=== PATIENT | female | born 1945 | race Caucasian/White ===

== ENCOUNTER 2017-09-23 21:01 | Emergency (ER) | payer MEDICARE ==
[~2017-09-23] VITALS: Ht 160 cm; Wt 98.9 kg
[~2017-09-23 21:01] MED LIST: ARTHRITIS PAIN650 MG PO; ASPIRIN EC81 MG PO; BIOTIN5 MG PO; CARVEDILOL3.125 MG PO; DILAUDID2 MG PO; DILAUDID4 MG PO; GLUCOPHAGE500 MG PO; JANUVIA100 MG PO; JANUVIA50 MG PO; LISINOPRIL20 MG PO; METFORMIN HCL500 MG PO; OXYCODONE HCL10 MG PO; PRAVACHOL40 MG PO; PRENA1 CHEW TA1.4 MG PO; SYNTHROID50 MCG PO; TYLENOL EXTRA500 MG PO; TYLENOL325 MG PO; VALIUM5 MG PO; VITAMIN D32000 UNI1 PO; XARELTO10 MG PO
[2017-09-24] MEDS ORDERED: FLOMAX0.4 MG PO (00:41)
[2017-09-24] MEDS ORDERED: PERCOCET 5-3251 EACH PO (00:41)
== END 2017-09-24 01:00 | disposition home or self-care (01) ==
LOC: ED 21:01
DX: N13.2 Hydronephrosis with renal and ureteral calculous obstruction (principal); E11.9 Type 2 diabetes mellitus without complications; Z96.641 Presence of right artificial hip joint; Z90.49 Acquired absence of other specified parts of digestive tract; Z90.710 Acquired absence of both cervix and uterus; Z88.5 Allergy status to narcotic agent; Z79.82 Long term (current) use of aspirin; Z79.899 Other long term (current) drug therapy; Z79.84 Long term (current) use of oral hypoglycemic drugs
CPT/HCPCS: 74176; 80053; 81001; 85025; 96374; 99284; J1885

== ENCOUNTER 2025-04-09 12:52 | Emergency (ER) | payer MEDICARE, OTHER ==
[~2025-04-09] VITALS: Ht 162.6 cm; Wt 104.0 kg
[~2025-04-09 12:52] MED LIST changes: +FLOMAX0.4 MG PO; +PERCOCET 5-3251 EACH PO
[2025-04-09] MEDS ORDERED: SODIUM CHLORIDE 0.9% 1,000 ML IV ONE (13:15)
[2025-04-09] MEDS ORDERED: ondansetron HCL 4 MG/2 ML VIAL IV PRN (13:15)
[2025-04-09] MEDS ORDERED: HYDROmorphone HCL 1 MG/ML SYR IV ONE (13:15)
[2025-04-09] MEDS ORDERED: KETOROLAC TROMETHAMINE 30 MG/ML VIAL IV ONE (13:15)
[2025-04-09] MEDS ORDERED: GLIPIZIDE ER2.5 MG PO (13:21)
[2025-04-09] MEDS ORDERED: PIOGLITAZONE HC15 MG PO (13:21)
[2025-04-09 13:42] LABS: BASOPHILS 0.7 % (0.1-1.2); HEMATOCRIT 36.1 % (34.1-44.9); HEMOGLOBIN 11.7 g/dL (11.2-15.7); LYMPHOCYTES 19.2 % (19.3-51.7); MCH 30.5 PG (25.6-32.2); MCHC 32.4 g/dL (32.2-35.5); MONOCYTES 5.5 % (4.7-12.5); NEUTROPHILS 71.4 % (34.0-71.1); PLATELET COUNT 119 K/uL (182-369); RBC 3.84 M/uL (3.93-5.22)
[2025-04-09 13:57] LABS: ALBUMIN 3.7 g/dL (3.4-5.0); ALBUMIN/GLOBULIN RATIO 1.03 (1.1-2.4); BILIRUBIN, TOTAL 0.7 mg/dL (0.2-1.0); CREATININE, SERUM 1.25 mg/dL (0.55-1.02); PROTEIN, TOTAL 7.3 g/dL (6.4-8.2)
[2025-04-09 15:53] LABS: BILIRUBIN, URINE NEGATIVE (negative); BLOOD/HGB, URINE LARGE (Negative); KETONE, URINE NEGATIVE (Negative); LEUK ESTERASE, URINE NEGATIVE (negative); NITRITE, URINE NEGATIVE (negative); PH, URINE 5.5 (5-7)
[2025-04-09 15:59] LABS: BACTERIA, URINE 1+ /hpf (negative); CASTS, URINE NONE SEEN \\lpf; COLLECTION TYPE, URINE CLEAN CATCH; CRYSTALS, URINE NONE SEEN (0-1+); EPITHELIAL CELLS, URINE SQUAMOUS 3+ /lpf (0-1+); RED BLOOD CELLS, URINE >50 /hpf (0-5); REFLEX CULTURE, URINE No (No)
[2025-04-09] MEDS ORDERED: HYDROCODON-ACE1 EA10 PO (17:01)
[2025-04-09 17:08] VITALS: BP 136/68
--- NOTE | 2025-04-10 19:35 | EKG ---
[facility] [address] [place] [address] Signed Normal sinus rhythm Incomplete right bundle branch block Left anterior fascicular block Minimal voltage criteria for LVH, may be normal variant ( R in aVL ) Abnormal ECG When compared with ECG of 01-JUL-2016 11:34, Incomplete right bundle branch block has replaced Right bundle branch block Confirmed by Rosanne Pennington DO ([id number]) on 04/10/2025 7:34:59 PM Electronically Signed By: ROSANNE PENNINGTON DO 04/10/251934 PATIENT NAME: PORTER DREW Electrocardiogram DATE OF : 45 PHYSICIAN: ROSANNE PENNINGTON DO REPORT #: [id number] REPORT IS CONFIDENTIAL AND NOT TO BE RELEASED WITHOUT AUTHORIZATION
== END 2025-04-09 17:08 | disposition home or self-care (01) ==
LOC: ED 12:52
PROVIDERS: Emergency Medicine
DX: N13.2 Hydronephrosis with renal and ureteral calculous obstruction (principal); E11.9 Type 2 diabetes mellitus without complications; Z90.49 Acquired absence of other specified parts of digestive tract; Z90.711 Acquired absence of uterus with remaining cervical stump; Z88.5 Allergy status to narcotic agent; Z79.890 Hormone replacement therapy; Z79.84 Long term (current) use of oral hypoglycemic drugs; Z79.899 Other long term (current) drug therapy
CPT/HCPCS: 36415; 74176; 80053; 81001; 83690; 85025; 93005; 93010; 96374; 96375; 99284-25; J1171; J1885; J2405; J7030